=== PATIENT | female | born 1985 | race Asian ===

== ENCOUNTER → 2017-07-13 | Outpatient (CLI) | payer SELFPAY ==
[2017-07-13 18:04] LABS: BASOPHILS % 1.2 % (0.0-2.0); HEMATOCRIT. 40.6 % (36.0-48.0); HEMOGLOBIN. 13.5 g/dL (12.0-16.0); LYMPHOCYTES % 25.3 % (20.0-50.0); MEAN CORPUSCULAR HEMOGLOBIN 29.9 pg (28.0-32.0); MEAN CORPUSCULAR VOLUME 89.5 fL (81.0-99.0); MEAN PLATELET VOLUME 9.2 fl (7.4-10.4); MONOCYTES % 4.5 % (2.0-8.0); PLATELET 249 x1000/uL (130-400); RED BLOOD CELL COUNT 4.53 mill/uL (4.2-5.4); RED CELL DISTRIBUTION WIDTH 13.1 % (11.6-14.6)
[2017-07-13 18:24] LABS: CHLORIDE 104 mEq/L (98-107)
[2017-07-13 18:33] LABS: T4 FREE 1.06 ng/dL (0.76-1.46)
[2017-07-13 20:16] LABS: VITAMIN B12 SERUM 664 pg/mL (211-911)
== END | disposition home or self-care (01) ==
LOC: LAB 17:10
DX: I10 Essential (primary) hypertension (principal); N95.1 Menopausal and female climacteric states
CPT/HCPCS: 36415; 80053; 80074; 82306; 82607; 82610; 82670; 83001; 84403; 84439; 84443; 84481; 85025; 86376; 86592; 86694; 86695; 86696; 87186; 87491; 87591